=== PATIENT | female | born 2000 | race Caucasian/White ===

== ENCOUNTER 2019-04-13 18:01 | Emergency (ER) | payer BC, OTHER ==
[2019-04-13] MEDS: traMADol 50 MG TAB PO (19:38)
[2019-04-13] MEDS: KETOROLAC 60 MG INJ IM (19:39)
[2019-04-13] MEDS: HYDROCODONE/APAP (5/325) TAB PO (20:24)
== END 2019-04-13 20:35 | disposition home or self-care (01) ==
LOC: FTE 18:01
DX: S92.515A Nondisplaced fracture of proximal phalanx of left lesser toe(s), initial encounter for closed fracture (principal); W22.8XXA Striking against or struck by other objects, initial encounter; Y92.9 Unspecified place or not applicable
CPT/HCPCS: 73630; 73630-LT; 81025; 96372; 99284-25